=== PATIENT | male | born 1975 | race African-American/Black ===

== ENCOUNTER 2020-01-30 17:14 | Emergency (ER) | payer OTHER, SELFPAY ==
--- NOTE | ~2020-01-30 | CT_ITS ---
EXAMINATION: CT abdomen pelvis wo con EXAM DATE: 01/30/2020 18:27 INDICATION: Nausea, abdominal pain, vomiting. History pancreatitis. TECHNIQUE: Spiral CT of the abdomen and pelvis was performed without contrast. Axial, coronal and sag ittal images were reviewed. The dose-length product (DLP) for this examination was 197.04 mGy-cm. T he exposure was tailored according to patient size (auto mA exposure control), and iterative reconstr uction (ASIR) was used as additional dose reduction technique. Comparison is made to prior examinatio n from 04/29/2019. FINDINGS: There is punctate left calyceal stone. No hydronephrosis or obstructing ureteral stones. Th e right kidney is not identified. There is cystic region posterior to the bladder and extending along the expected course of the right ureter which is likely ureter, dilated from chronic right-sided UVJ reflux, similar appearance on prior study. The prostate is unremarkable. The bladder is unremarkab le. The liver, spleen, adrenal glands and pancreas are unremarkable. Gallbladder is unremarkable. No biliary obstruction. There is no retroperitoneal or pelvic lymphadenopathy. The appendix is not positively visualized. There is no pericecal inflammatory change to suggest appe ndicitis. There is mild sigmoid predominant colonic diverticulosis. There is no adjacent inflammator y change to suggest diverticulitis. The stomach and small bowel are unremarkable. Possible transvers e and descending colonic wall edema, possible colitis. No free intraperitoneal gas. The heart is normal in size. There are no pericardial or pleural effusions. The lung bases are unremarkable. Th e bones are unremarkable. IMPRESSION: 1. Punctate left calyceal stone. 2. Chronic severe right-sided hydroureter likely result of vesicoureteral reflux, unchanged. 3. Possible transverse and descending colonic colitis. Reviewed, dictated and finalized at location A. IMPRESSION: 1. Punctate left calyceal stone. 2. Chronic severe right-sided hydroureter likely result of vesicoureteral refl ux, unchanged. 3. Possible transverse and descending colonic colitis.
[2020-01-30 17:14] VITALS: BP 143/97; PULSE 78; RESP 17; TEMP 36.6; O2SAT 100
[2020-01-30 17:35] LABS: Basophils Percent Auto 0.4 % (0.2-1.2); Eosinophils Percent Auto 0.5 % (0-4.4); Hematocrit 39.6 % (42.0-52.0); Hemoglobin 13.4 g/dL (14.0-18.0); Immature Granulocyte Absolute 0.02 K/mm3 (0.00-0.031); Immature Granulocyte Percent A 0.3 % (0-0.5); Lymphocytes Absolute Auto 1.91 K/mm3 (0.9-3.2); Lymphocytes Percent Auto 24.8 % (18.3-44.2); Mean Corpuscular HGB Conc 33.8 g/dl (32-36); Mean Corpuscular Hemoglobin 32.3 pg (26-34); Mean Corpuscular Volume 95.4 fl (80-100); Mean Platelet Volume 10.3 fl (7.4-10.4); Monocytes Absolute Auto 0.3 K/mm3 (0.1-0.6); Monocytes Percent Auto 4.4 % (2.6-8.5); Neutrophils Absolute Auto 5.4 K/mm3 (1.3-6.7); Neutrophils Percent Auto 69.6 % (45.5-73.1); Platelet Count Result 172 k/mm3 (150-375); Red Blood Count 4.15 M/mm3 (4.6-6.20); Red Cell Distribution Width 13.8 % (11.5-14.5); White Blood Count 7.7 K/mm3 (4.5-10.0)
[2020-01-30 17:48] LABS: Alanine Aminotransferase 13 U/L (4-50); Alkaline Phosphatase 41 U/L (38-126); Aspartate Amino Transferase 28 U/L (17-59); Bilirubin,Total 0.4 mg/dL (0.2-1.3); Blood Urea Nitrogen 15 mg/dL (9-20); Calcium 8.8 mg/dL (8.4-10.2); Carbon Dioxide 28 mmol/L (22-30); Chloride 108 mmol/L (98-107); Estimated CRCL calculation 71 ml/min; Estimated Glomerular Filt Rate > 60; Glucose 88 mg/dL (75-110); Lipase 412 U/L (23-300); Sodium 139 mmol/L (137-145)
[2020-01-30] MEDS: SODIUM CHLORIDE 0.9% IV 1,000 ML 999 ML IV CONT ×2 (18:04→19:50)
[2020-01-30] MEDS: HYDROMORPHONE HCL 1 MG/ML INJ IV PUSH (18:04)
[2020-01-30] MEDS: ONDANSETRON INJ 4 MG/2 ML VIAL IV PUSH (18:04)
--- NOTE | 2020-01-30 18:17 | ED.ABDPAIN ---
HPI - Abdominal Pain General Chief Complaint: Abdominal Pain <NASIR Mills Last Filed: 01/30/20 20:16> Stated Complaint: ABD PAIN <NASIR Mills Last Filed: 01/30/20 20:16> Time Seen by Provider: 01/30/20 17:34 <NASIR Mills Last Filed: 01/30/20 20:16> Source: patient <NASIR Mills Last Filed: 01/30/20 20:16> Mode of arrival: EMS <NASIR Mills Last Filed: 01/30/20 20:16> Limitations: no limitations <NSAIR Mills Last Filed: 01/30/20 20:16> History of Present Illness HPI narrative: This is a 44-year-old male that presents the emergency department for upper abdominal pain, nausea and vomiting. Reports this started this morning. Reports a history of chronic pancreatitis. Reports he drank alcohol last night which usually exacerbates his pancreatitis. Also reports he has been having some diarrhea. Denies fever. <NASIR Mills Last Filed: 01/30/20 20:16> Related Data Allergies/Adverse Reactions: Allergies Allergy/AdvReac Type Severity Reaction Status Date / Time ketorolac Allergy Intermediate dystonic Verified 10/14/18 14:04 prochlorperazine Allergy Intermediate Verified 10/14/18 14:04 morphine Allergy Mild Verified 10/14/18 14:04 fentanyl Allergy Unknown Verified 10/14/18 14:04 iodine Allergy Unknown IVP DYE Verified 10/14/18 14:04 Contrast Media Allergy Mild Uncoded 10/14/18 14:04 <NASIR Mills Last Filed: 01/30/20 20:16> Review of Systems Review of Systems: Narrative: CONSTITUTIONAL: Denies fever GASTROINTESTINAL: Reports abdominal pain, nausea, vomiting, and diarrhea. GENITOURINARY: Denies dysuria or hematuria. <NASIR Mills Last Filed: 01/30/20 20:16> All systems reviewed & are unremarkable except as noted in HPI and below <Delmy Saba PA-C - Last Filed: 01/30/20 20:16> [facility] Past Medical History Medical History: Medical History (Updated 01/31/20 @ 00:00 by Luis Carlos May) Anxiety Back injury Depression Epilepsy GI bleed Gonorrhea H pylori ulcer Kidney stones Multiple sclerosis Nephritis Pancreatic cancer Pancreatitis Parkinson's disease Peripheral neuropathy Seizure UTI (urinary tract infection) <Delmy Saba PA-C - Last Filed: 01/30/20 20:16> Surgical History Surgical History: Surgical History (Updated 08/28/19 @ 16:35 by Neeraj Ashley) H/O removal of cyst History of hernia surgery History of nephrectomy <NASIR Mills Last Filed: 01/30/20 20:16> Social History Social History: Social History (Updated 08/28/19 @ 16:35 by Neeraj Ashley) Smoking status: Current every day smoker Gender identity (if verbalized by the patient): Male <NASIR Mills Last Filed: 01/30/20 20:16> Exam Narrative: Exam Narrative: GENERAL: Well-appearing, well-nourished, and in acute distress due to pain. HEAD: Normocephalic, atraumatic. EYES: EOMI. CHEST: Clear to auscultation. No respiratory distress. No wheezes rales or rhonchi HEART: Regular rate and rhythm. No murmur heard. Normal peripheral pulses. ABDOMEN: Soft, nondistended, normal active bowel sounds. Tender to palpation of the upper abdomen, without guarding EXTREMITIES: Normal range of motion. No edema. SKIN: Warm, dry, no rash. NEURO: No focal deficits. Alert and oriented x3. PSYCH: Normal mood and affect <NASIR Mills Last Filed: 01/30/20 20:16> Course Consultations Consultation #1: Spoke with Dr. Chaney about patient work-up who reports if patient feels comfortable we can hydrate him in the ED and send him home to follow-up in clinic tomorrow. <NASIR Mills Last Filed: 01/30/20 20:16> Date: 01/30/20 <NASIR Mills Last Filed: 01/30/20 20:16> Time: 20:09 <Delmy Saba PA-C - Last Filed: 01/30/20 20:16> Vital Signs Vital signs: Vital Signs Temperature 36.6 C 01/30/20 17:14
[2020-01-30 18:42] VITALS: BP 114/75; PULSE 70; RESP 12; O2SAT 100
[2020-01-30 19:15] VITALS: TEMP 36.6
[2020-01-30 19:50] LABS: Add Urine Microscopic? YES; Appearance Urine Clear (Clear); Bilirubin Urine Negative (Negative); Blood Urine 2+ (Negative); Color Urine Yellow (Yellow); Glucose Urine UA Negative (Negative); Ketones Urine Negative (Negative); Leukocyte Esterase Ur Negative LEU/UL (Negative); Mucus Urine Rare /lpf; Nitrate Urine Negative (Negative); Protein Urine Negative (Negative); RBC Urine 21-50 /hpf (0-2); Specific Grav Ur 1.016 (1.001-1.035); Squamous Epithelial Cell Urine Rare /hpf (Few); Urobilinogen Urine Negative mg/dL (<2.0); WBC Urine 0-3 /hpf
[2020-01-30 20:01] VITALS: BP 128/84; PULSE 87; RESP 16; O2SAT 99
--- NOTE | 2020-01-30 21:08 | PC.NURSE ---
Heparin used to de-access port.
[2020-01-30 21:09] VITALS: BP 139/78; PULSE 82; RESP 18; TEMP 36.6; O2SAT 100
== END 2020-01-30 21:10 | disposition home or self-care (01) ==
PROVIDERS: Emergency Provider Emergency Medicine
DX: K86.1 Other chronic pancreatitis (principal); Z90.5 Acquired absence of kidney; F17.200 Nicotine dependence, unspecified, uncomplicated; N20.0 Calculus of kidney; N13.4 Hydroureter; Z85.07 Personal history of malignant neoplasm of pancreas; Z87.442 Personal history of urinary calculi; G20 Parkinson's disease; G62.9 Polyneuropathy, unspecified; Z87.440 Personal history of urinary (tract) infections
CPT/HCPCS: 36415; 74176; 80053; 81001; 83690; 85025; 96361; 96374; 96375; 99284; J1170; J2405; J7030

== ENCOUNTER 2020-05-04 11:28 | Emergency (ER) | payer OTHER, SELFPAY ==
--- NOTE | ~2020-05-04 | XR_ITS ---
EXAMINATION: XR wrist LT min 3V DATE: 05/04/2020 11:45 INDICATION: Left wrist pain TECHNIQUE: Posteroanterior, ulnar deviation, oblique, and lateral views of the left wrist were obtain ed. COMPARISON: None available FINDINGS: There is no fracture, dislocation, or subluxation. The bones, soft tissues, and joint space s are normal. IMPRESSION: 1. No acute osseous abnormality. Reviewed, dictated and finalized at location A.
[2020-05-04 11:32] VITALS: BP 114/75; PULSE 77; RESP 18; TEMP 36.3; O2SAT 99
--- NOTE | 2020-05-04 12:09 | ED.GENADULT ---
HPI - General Adult General Chief complaint: Extremity Injury, Upper <Tk Gao PA-C - Last Filed: 05/04/20 12:13> Stated complaint: Left Arm Pain <NASIR Mercedes Last Filed: 05/04/20 12:13> Time Seen by Provider: 05/04/20 11:31 <Tk Gao PA-C - Last Filed: 05/04/20 12:13> Source: patient <NASIR Mercedes Last Filed: 05/04/20 12:13> Mode of arrival: ambulatory <Tk Gao PA-C - Last Filed: 05/04/20 12:13> Limitations: no limitations <Tk Gao PA-C - Last Filed: 05/04/20 12:13> History of Present Illness HPI narrative: Patient is a 44-year-old male who presents to emergency department for evaluation of left wrist injury that occurred after shutting his wrist in the door since had aching pain worse with activity and movement patient denies other injuries or complaints and presents in no distress <Tk Gao PA-C - Last Filed: 05/04/20 12:13> Related Data Allergies/adverse reactions: Allergies Allergy/AdvReac Type Severity Reaction Status Date / Time morphine Allergy Other Verified 05/04/20 11:36 prochlorperazine Allergy Other Verified 05/04/20 11:36 [From Compazine] IVP dye Allergy Other Uncoded 05/04/20 11:36 <Tk Gao PA-C - Last Filed: 05/04/20 12:13> Review of Systems Review of Systems: All systems reviewed & are unremarkable except as noted in HPI and below <Tk Gao PA-C - Last Filed: 05/04/20 12:13> PMFSH Social History Social History: Social History (Updated 05/04/20 @ 12:10 by Tk Gao PA-C) Smoking status: Never smoker Gender identity (if verbalized by the patient): Male <Tk Gao PA-C - Last Filed: 05/04/20 12:13> Exam Narrative: Exam Narrative: GENERAL: Well-appearing, well-nourished, and in no acute distress. HEAD: Normocephalic, atraumatic. EYES: PERRLA and EOMI. EXTREMITIES: Normal range of motion. No edema. Tenderness of the wrist joint with no deformities noted SKIN: Warm, dry, no rash. NEURO: No focal deficits. Alert and oriented x3. Neurovascularly intact. Capillary refill less than 2 seconds PSYCH: Normal mood and affect. <Tk Gao PA-C - Last Filed: 05/04/20 12:13> Course Course Emergency Course: Patient in the room in no distress aware of case findings treatment plan and diagnosis <Tk Gao PA-C - Last Filed: 05/04/20 12:13> Vital Signs Vital signs: Vital Signs Temperature 36.3 C L 05/04/20 11:32 Pulse Rate 77 05/04/20 11:32 Respiratory Rate 18 05/04/20 11:32 Blood Pressure 114/75 05/04/20 11:32 Pulse Oximetry 99 05/04/20 11:32 Temperature 36.3 C L 05/04/20 11:32 Pulse Rate 77 05/04/20 11:32 Respiratory Rate 18 05/04/20 11:32 Blood Pressure 114/75 05/04/20 11:32 Pulse Oximetry 99 05/04/20 11:32 <Tk Gao PA-C - Last Filed: 05/04/20 12:13> Vital Signs Temperature 36.3 C L 05/04/20 11:32 Pulse Rate 77 05/04/20 11:32 Respiratory Rate 18 05/04/20 11:32 Blood Pressure 114/75 05/04/20 11:32 Pulse Oximetry 99 05/04/20 11:32 Temperature 36.3 C L 05/04/20 11:32 Pulse Rate 77 05/04/20 11:32 Respiratory Rate 18 05/04/20 11:32 Blood Pressure 114/75 05/04/20 11:32 Pulse Oximetry 99 05/04/20 11:32 <Anel Haney MD - Last Filed: 05/04/20 12:33> Medical Decision Making MDM Narrative Medical decision making narrative: Patients injury or pain is consistent with musculoskeletal etiology. No signs of neurological or vascular compromise on exam. Compartments and tisues are soft without signs of compartment syndrome. Pain is felt appropriate for further evaluation on an outpatient basis. <NASIR Mercedes Last Filed: 05/04/20 12:13> Vital Signs Vital Signs: Vital Signs Temperature 36.3 C L 05/04/20 11:32 Pulse Rate 77 05/04/20 11:32 Respiratory Rate 18 05/04/20 11:32 Blood
[2020-05-04 12:36] VITALS: PULSE 72; RESP 20; O2SAT 100
== END 2020-05-04 12:37 | disposition home or self-care (01) ==
PROVIDERS: Emergency Provider Emergency Medicine
DX: S63.502A Unspecified sprain of left wrist, initial encounter (principal); S66.912A Strain of unspecified muscle, fascia and tendon at wrist and hand level, left hand, initial encounter; W23.0XXA Caught, crushed, jammed, or pinched between moving objects, initial encounter
CPT/HCPCS: 73110; 99283

== ENCOUNTER 2020-07-13 19:14 | Emergency (ER) | payer OTHER, SELFPAY ==
--- NOTE | 2020-07-13 20:13 | PC.NURSE ---
called for pt in waiting room, no response
--- NOTE | 2020-07-13 20:30 | PC.NURSE ---
Patient called for triage, second call. No answer. Patient has left ED prior to being seen.
== END 2020-07-13 20:30 | disposition left against medical advice (07) ==
LOC: ANHED 21:29
DX: Z53.21 Procedure and treatment not carried out due to patient leaving prior to being seen by health care provider (principal)
CPT/HCPCS: 99199

== ENCOUNTER 2020-07-15 10:10 | Emergency (ER) | payer OTHER, SELFPAY ==
--- NOTE | ~2020-07-15 | XR_ITS ---
EXAMINATION: XR shoulder RT min 2V EXAM DATE: 07/15/2020 12:09 INDICATION: Right shoulder pain, injury. Initial encounter. TECHNIQUE: The following right shoulder projections obtained: frontal projection with internal rotati on, frontal projection with external rotation, Grashey, and scapular Y view (4+ views). There is no prior study for comparison. FINDINGS: No evidence of right shoulder rotator cuff calcific tendinosis. Unremarkable right gleno humeral and acromioclavicular joints. There are no acute fractures or dislocations identified. There is no subcutaneous gas. The soft tissue is unremarkable. There are no radiopaque foreign bodies. IMPRESSION: 1. XR shoulder RT min 2V exam without acute osseous findings. Reviewed, dictated and finalized at location A. EAU ADMINISTRATOR
[2020-07-15 10:15] VITALS: BP 133/105; PULSE 77; RESP 16; TEMP 36.6; O2SAT 97
--- NOTE | 2020-07-15 11:50 | ED.UPPEXIN ---
HPI - Extremity Injury (Upper) General Chief Complaint: Extremity Injury, Upper Stated Complaint: right shoulder pain Time Seen by Provider: 07/15/20 11:22 Source: patient Mode of arrival: ambulatory Limitations: no limitations History of Present Illness HPI narrative: This is a 44 year old male that presents to the ER for right shoulder pain x 1 week. Reports he was shoveling and felt a pop in the right shoulder. Reports initially he was having improvement with Naproxen. Reports a couple of days ago he lifted a heavy box with worsening in his pain again. Reports decreased ROM due to pain. Denies fever, erythema, weakness or numbness. Related Data Home Medications Medication Instructions Recorded Confirmed No Home Medications 07/15/20 07/15/20 Allergies Allergy/AdvReac Type Severity Reaction Status Date / Time ketorolac Allergy Intermediate dystonic Verified 10/14/18 14:04 prochlorperazine Allergy Intermediate Blister Verified 07/15/20 10:46 morphine Allergy Mild Blister Verified 07/15/20 10:46 fentanyl Allergy Unknown Blister Verified 07/15/20 10:46 Contrast Media Allergy Mild Other Uncoded 07/15/20 10:46 Review of Systems Review of Systems: Narrative: CONSTITUTIONAL: Denies fever CARDIOVASCULAR: Denies chest pain SKIN: Denies rash MUSCULOSKELETAL: Reports joint pain, and myalgia. NEUROLOGIC: Denies numbness, or weakness. All systems reviewed & are unremarkable except as noted in HPI and below PMFSH Past Medical History Medical History (Updated 07/15/20 @ 13:02 by Delmy Saba PA-C) Anxiety Back injury Depression Epilepsy GI bleed Gonorrhea H pylori ulcer Kidney stones Multiple sclerosis Nephritis Pancreatic cancer Pancreatitis Parkinson's disease Peripheral neuropathy Seizure UTI (urinary tract infection) Surgical History Surgical History (Updated 08/28/19 @ 16:35 by Neeraj Ashley) H/O removal of cyst History of hernia surgery History of nephrectomy Social History Social History (Updated 08/28/19 @ 16:35 by Neeraj Ashley) Smoking status: Current every day smoker Gender identity (if verbalized by the patient): Male Exam Narrative: Exam Narrative: GENERAL: Well-appearing, well-nourished, and in no acute distress. HEAD: Normocephalic, atraumatic. EYES: EOMI. CHEST: Clear to auscultation. No respiratory distress. No wheezes rales or rhonchi HEART: Regular rate and rhythm. No murmur heard. Normal peripheral pulses. EXTREMITIES: Decreased active range of motion in the right shoulder above 90 degrees due to pain. No edema, erythema or obvious deformity. Normal radial pulses. Normal sensation SKIN: Warm, dry, no rash. NEURO: No focal deficits. Alert and oriented x3. PSYCH: Normal mood and affect Course Vital Signs Vital signs: Vital Signs Temperature 97.8 F 07/15/20 10:15 Pulse Rate 77 07/15/20 10:15 Respiratory Rate 16 07/15/20 10:15 Blood Pressure 133/105 H 07/15/20 10:15 Pulse Oximetry 97 07/15/20 10:15 Temperature 97.8 F 07/15/20 10:15 Pulse Rate 77 07/15/20 10:15 Respiratory Rate 16 07/15/20 10:15 Blood Pressure 133/105 H 07/15/20 10:15 Pulse Oximetry 97 07/15/20 10:15 MDM - Extremity Injury (Upper) MDM Narrative Medical decision making narrative: Patient presents to the emergency department for right shoulder pain after an injury a week ago. Right shoulder x-rays without acute findings. Patient was instructed to rest, ice and take [id number] pain medication as needed. He is to follow-up with primary care doctor. He was given warnings to return to the ER Imaging Data Radiologist's impression: ITS Impressions Shoulder X-Ray 07/15/20 12:13 IMPRESSION: 1. XR shoulder RT min 2V exam without acute osseous findings. Critical Care Time Critical Care Time Critical Care Time: No Discharge Plan Discharge Clinical Impression: Acute pain of right shoulder Patient Disposition: Home, Self-Care
== END 2020-07-15 13:16 | disposition home or self-care (01) ==
PROVIDERS: Emergency Provider Emergency Medicine; PCP Internal Medicine
DX: M25.511 Pain in right shoulder (principal); Z87.442 Personal history of urinary calculi; Z85.07 Personal history of malignant neoplasm of pancreas; Z87.440 Personal history of urinary (tract) infections; F17.200 Nicotine dependence, unspecified, uncomplicated; Z90.5 Acquired absence of kidney
CPT/HCPCS: 73030; 99283; A4565

== ENCOUNTER 2020-08-03 16:48 | Emergency (ER) | payer OTHER, SELFPAY ==
[2020-08-03 16:58] VITALS: BP 143/113; PULSE 67; RESP 18; TEMP 36.8; O2SAT 97
[2020-08-03 17:56] VITALS: BP 128/108; PULSE 64; RESP 16; O2SAT 97
[2020-08-03 18:00] LABS: Basophils Percent Auto 0.4 % (0.2-1.2); Eosinophils Absolute Auto 0.1 K/mm3 (0-0.3); Hematocrit 42.7 % (42.0-52.0); Hemoglobin 14.8 g/dL (14.0-18.0); Immature Granulocyte Absolute 0.02 K/mm3 (0.00-0.031); Immature Granulocyte Percent A 0.3 % (0-0.5); Immature Platelet Fraction Pct 4.5 % (0.9-11.2); Lymphocytes Percent Auto 36.8 % (18.3-44.2); Mean Corpuscular HGB Conc 34.7 g/dl (32-36); Mean Corpuscular Hemoglobin 32.5 pg (26-34); Mean Corpuscular Volume 93.6 fl (80-100); Monocytes Absolute Auto 0.6 K/mm3 (0.1-0.6); Monocytes Percent Auto 8.7 % (2.6-8.5); Neutrophils Absolute Auto 3.9 K/mm3 (1.3-6.7); Neutrophils Percent Auto 52.8 % (45.5-73.1); Platelet Count Result 169 k/mm3 (150-375); Red Blood Count 4.56 M/mm3 (4.6-6.20); Red Cell Distribution Width 13.9 % (11.5-14.5); White Blood Count 7.3 K/mm3 (4.5-10.0)
[2020-08-03 18:11] LABS: Anion Gap 10 mmol/L (8-16); Blood Urea Nitrogen 14 mg/dL (9-20); Calcium 9.7 mg/dL (8.4-10.2); Carbon Dioxide 23 mmol/L (22-30); Chloride 105 mmol/L (98-107); Estimated CRCL calculation 64 ml/min; Estimated Glomerular Filt Rate > 60; Glucose 107 mg/dL (75-110); Potassium 3.7 mmol/L (3.4-5.0); Sodium 138 mmol/L (137-145)
--- NOTE | 2020-08-03 18:19 | ED.GENADULT ---
HPI - General Adult General Chief complaint: Extremity Injury, Upper Stated complaint: lumps in my right arm Time Seen by Provider: 08/03/20 17:17 Source: patient and old records reviewed Mode of arrival: ambulatory Limitations: no limitations History of Present Illness HPI narrative: Patient is a 45-year-old male who presents to emergency department for evaluation of right upper extremity pain patient notes feeling bumps in the right bicep region with pain down to the wrist up into the shoulder patient denies injury or trauma patient notes the pain is worse with activity and movement denies similar occurrence in the past has not taken anything other than ibuprofen with some relief patient presents per private vehicle no distress Related Data Home Medications Medication Instructions Recorded Confirmed No Home Medications 07/15/20 07/15/20 Allergies Allergy/AdvReac Type Severity Reaction Status Date / Time ketorolac Allergy Intermediate dystonic Verified 08/03/20 17:16 prochlorperazine Allergy Intermediate Blister Verified 08/03/20 17:16 morphine Allergy Mild Blister Verified 08/03/20 17:16 fentanyl Allergy Unknown Blister Verified 08/03/20 17:16 Contrast Media Allergy Mild Other Uncoded 08/03/20 17:16 Review of Systems Review of Systems: All systems reviewed & are unremarkable except as noted in HPI and below PMFSH Past Medical History Medical History Anxiety Back injury Depression Epilepsy GI bleed Gonorrhea H pylori ulcer Kidney stones Multiple sclerosis Nephritis Pancreatic cancer Pancreatitis Parkinson's disease Peripheral neuropathy Seizure UTI (urinary tract infection) Surgical History Surgical History H/O removal of cyst History of hernia surgery History of nephrectomy Social History Social History Smoking status: Current every day smoker Gender identity (if verbalized by the patient): Male Exam Narrative: Exam Narrative: GENERAL: Well-appearing, well-nourished, and in no acute distress. HEAD: Normocephalic, atraumatic. EYES: PERRLA and EOMI. ENT: Nares clear, no rhinorrhea or epistaxis. Mucous membranes moist. CHEST: Clear to auscultation. No respiratory distress. No wheezes rales or rhonchi HEART: Regular rate and rhythm. No murmur heard. Normal peripheral pulses. EXTREMITIES: Normal range of motion. No edema. Patient with palpable cord from the deltoid region down along the inner bicep without erythema fluctuance SKIN: Warm, dry, no rash. NEURO: No focal deficits. Alert and oriented x3. Neurovascularly intact. Capillary refill less than 2 seconds PSYCH: Normal mood and affect. Course Course Emergency Course: Patient in the room in no distress aware of case findings treatment plan diagnosis patient given a dose of Lovenox will be discharged home for return visit in the morning for ultrasound rule out DVT. Patient hemodynamically stable vital signs within normal limits. Patient aware of discussion with his primary care and agrees with the plan and will return in the morning Consultations Consultation #1: Discussed case with his primary care and notes that he can contact him to follow in clinic was made aware of the ultrasound findings Date: 08/03/20 Time: 18:21 Vital Signs Vital signs: Vital Signs Temperature 98.2 F 08/03/20 16:58 Pulse Rate 67 08/03/20 16:58 Respiratory Rate 18 08/03/20 16:58 Blood Pressure 143/113 H 08/03/20 16:58 Pulse Oximetry 97 08/03/20 16:58 Temperature 98.2 F 08/03/20 16:58 Pulse Rate 64 08/03/20 17:56 Respiratory Rate 16 08/03/20 17:56 Blood Pressure 128/108 H 08/03/20 17:56 Pulse Oximetry 97 08/03/20 17:56 Medical Decision Making MDM Narrative Medical decision making narrative: Patients injury or pain is consistent with musculoskeletal etiolog
[2020-08-03] MEDS: ENOXAPARIN 80 MG/0.8 ML SYRINGE 65 MG SUB-Q (18:33)
[2020-08-03 18:37] VITALS: BP 135/93; PULSE 75; RESP 18; O2SAT 97
== END 2020-08-03 18:40 | disposition home or self-care (01) ==
PROVIDERS: Emergency Medicine Emergency Medical Services; Emergency Provider Emergency Medicine
DX: M79.601 Pain in right arm (principal); G40.909 Epilepsy, unspecified, not intractable, without status epilepticus; Z87.442 Personal history of urinary calculi; G35 Multiple sclerosis; Z85.07 Personal history of malignant neoplasm of pancreas; G20 Parkinson's disease; G62.9 Polyneuropathy, unspecified; Z87.440 Personal history of urinary (tract) infections; Z90.5 Acquired absence of kidney; F17.200 Nicotine dependence, unspecified, uncomplicated
CPT/HCPCS: 36415; 80048; 85025; 85055; 96372; 99283; J1650

== ENCOUNTER 2020-11-30 20:25 | Inpatient (IN) | payer OTHER, SELFPAY ==
--- NOTE | ~2020-11-30 | XR_ITS ---
XR chest 1V portable DATE: 11/30/2020 22:22 INDICATION: Overdose TECHNIQUE: Portable AP chest on 11/30/2020 at 2223 hours COMPARISON: 06/24/2014 PA and lateral chest FINDINGS: Left-sided Port-A-Cath catheter tip overlies superior vena cava. Normal heart size. No pulmonary infiltrate or consolidation, pleural effusion or pulmonary vascular c ongestion or pneumothorax is detected. IMPRESSION: No active cardiopulmonary disease Reviewed, dictated and finalized at location A.
--- NOTE | ~2020-11-30 | XR_ITS ---
XR abdomen/kub 1V DATE: 11/30/2020 22:01 INDICATION: Drug overdose TECHNIQUE: Portable supine AP views COMPARISON: 01/30/2020 CT abdomen pelvis FINDINGS: Nonspecific bowel gas pattern without evidence of obstruction. No visceromegaly or signific ant abnormal calcification is evident. Heart size appears normal. Lung bases appear clear. Included skeletal structures are unremarkable. IMPRESSION: Nonspecific abdomen Reviewed, dictated and finalized at Location A. Reviewed, dictated and finalized at location A. IMPRESSION: Nonspecific abdomen
[2020-11-30 20:26] VITALS: BP 152/97; PULSE 73; RESP 14; TEMP 36.5; O2SAT 95
[2020-11-30 20:32] VITALS: RESP 13
--- NOTE | 2020-11-30 20:35 | ECG_ITS ---
Measurements Intervals [place] Rate: 89 P: 74 [place]: 150 QRS: 69 QRSD: 70 T: 62 QT: 339 QTc: 413 Interpretive Statements SINUS RHYTHM PEAKED T WAVES- CONSIDER HYPERKALEMIA OR ISCHEMIA BASELINE ARTIFACT- I, II, AVR, AVL,A VF ABNORMAL ECG Electronically Signed On 12-01-2020 7:34:44 CDT by Jose Valiente D.O.
--- NOTE | 2020-11-30 20:47 | ED.OVERDOSE ---
HPI - Overdose General Chief Complaint: Overdose Stated Complaint: combative/ OD/ from PD Time Seen by Provider: 11/30/20 20:32 Source: EMS and RN notes reviewed Mode of arrival: EMS Limitations: clinical condition History of Present Illness HPI Narrative: Patient is 45 years old -[place] male brought to the emergency room by the police/ambulance because of drug overdose of 30 tablets of Seroquel, 50 mg each, clonazepam, 30 tablets of unknown strength. 45 minutes prior to arrival to the emergency room. Patient got arrested by the police, somehow was able to grab some pills in his socks. 6 pills found on the floor of Seroquel 50 mg each. Related Data Home Medications Medication Instructions Recorded Confirmed No Home Medications 07/15/20 07/15/20 Allergies Allergy/AdvReac Type Severity Reaction Status Date / Time ketorolac Allergy Intermediate dystonic Verified 08/03/20 17:16 prochlorperazine Allergy Intermediate Blister Verified 08/03/20 17:16 morphine Allergy Mild Blister Verified 08/03/20 17:16 fentanyl Allergy Unknown Blister Verified 08/03/20 17:16 Contrast Media Allergy Mild Other Uncoded 08/03/20 17:16 Review of Systems Review of Systems: ROS unobtainable: Yes unobtainable due to medical condition PMFSH Past Medical History Medical History Anxiety Back injury Depression Epilepsy GI bleed Gonorrhea H pylori ulcer Kidney stones Multiple sclerosis Nephritis Pancreatic cancer Pancreatitis Parkinson's disease Peripheral neuropathy Seizure UTI (urinary tract infection) Surgical History Surgical History H/O removal of cyst History of hernia surgery History of nephrectomy Social History Social History Smoking status: Current every day smoker Gender identity (if verbalized by the patient): Male Exam Narrative: Exam Narrative: General appearance: Well-developed, well-nourished, handcuffed in the bed, uncooperative,, sleepy Skin: Normal color Head: Normocephalic, nontraumatic Eyes: Clear conjunctiva Neck: Supple, nontender Chest and respiratory: Airway patent, no respiratory distress, no accessory muscle use Heart: Regular rate/rhythm Musculoskeletal: Normal range of motion, nontender back Neurologic: Alert, somnolent, uncooperative Course Course Emergency Course: Guarded Consultations Consultation #1: DR FLORES Date: 11/30/20 Time: 22:53 Vital Signs Vital signs: Vital Signs Temperature 36.5 C 11/30/20 20:26 Pulse Rate 73 11/30/20 20:26 Respiratory Rate 14 11/30/20 20:26 Blood Pressure 152/97 H 11/30/20 20:26 Pulse Oximetry 95 11/30/20 20:26 Temperature 36.5 C 11/30/20 20:26 Pulse Rate 73 11/30/20 20:26 Respiratory Rate 13 11/30/20 20:32 Blood Pressure 152/97 H 11/30/20 20:26 Pulse Oximetry 95 11/30/20 20:26 MDM - Overdose MDM Narrative Medical decision making narrative: Patient brought to the emergency room because of overdose of Seroquel and clonazepam. Patient is uncooperative, currently responsive to painful stimulation. Poison control recommendation that patient could have in the next 1 to 4 hours central nervous system depression, ataxia, decrease respiratory and decreased blood pressure. And the recommendation was to use benzodiazepines, Keppra, propofol and IV fluid Lab Data Result diagrams: 11/30/20 21:28 Labs: Lab Results 11/30/20 11/30/20 11/30/20 Range/Units 20:58 20:58 21:17 WBC (4.5-10.0) K/mm3 RBC (4.6-6.20) M/mm3 Hgb (14.0-18.0) g/dL Hct (42.0-5
[2020-11-30 21:09] LABS: Base Excess ABG -2.2 mEq/l (+/-2.0); Fractional Inspired Oxygen 21 %; HCO3 ABG 23.7 mEq/l (22.0-26.0); Oxygen Content ABG 17.8 %vol (16.0-22.0); Oxygen Saturation ABG 96.1 % (95.0-100.0); Oxyhemoglobin 94.3 % THb (90.0-100.0); PCO2 ABG 45.1 mmHg (35.0-45.0); PO2 ABG 87.7 mmHg (80.0-100.0); PO2 FiO2 Ratio Arterial Blood 4.18 %; Total Hemoglobin 13.4 g/dL (12.0-18.0); pH ABG 7.339 (7.350-7.450)
[2020-11-30 21:10] LABS: Add Urine Microscopic? YES; Appearance Urine Clear (Clear); Bacteria Urine Trace /hpf; Bilirubin Urine Negative (Negative); Blood Urine 2+ (Negative); Color Urine Yellow (Yellow); Glucose Urine UA Negative (Negative); Ketones Urine Negative (Negative); Leukocyte Esterase Ur Negative LEU/UL (Negative); Mucus Urine Few /lpf; Nitrate Urine Negative (Negative); Protein Urine 2+ mg/dL (Negative); RBC Urine 21-50 /hpf (0-2); Specific Grav Ur 1.023 (1.001-1.035); Squamous Epithelial Cell Urine Rare /hpf (Few); Urobilinogen Urine Negative mg/dL (<2.0)
[2020-11-30] MEDS: SODIUM CHLORIDE 0.9% IV 1,000 ML 999 ML IV CONT ×2 (21:17)
--- NOTE | 2020-11-30 21:19 | PC.NURSE ---
bedside glucose is 105.
[2020-11-30 21:20] LABS: Glucose Point of Care 105 (65-105)
[2020-11-30 21:36] LABS: Basophils Percent Auto 0.4 % (0.2-1.2); Eosinophils Percent Auto 0.2 % (0-4.4); Hematocrit 42.2 % (42.0-52.0); Hemoglobin 13.5 g/dL (14.0-18.0); Immature Granulocyte Absolute 0.05 K/mm3 (0.00-0.031); Immature Granulocyte Percent A 0.6 % (0-0.5); Lymphocytes Absolute Auto 1.09 K/mm3 (0.9-3.2); Mean Platelet Volume 9.4 fl (7.4-10.4); Monocytes Absolute Auto 0.6 K/mm3 (0.1-0.6); Monocytes Percent Auto 6.7 % (2.6-8.5); Neutrophils Absolute Auto 7.2 K/mm3 (1.3-6.7); Neutrophils Percent Auto 80.1 % (45.5-73.1); Platelet Count Result 185 k/mm3 (150-375); Red Blood Count 4.22 M/mm3 (4.6-6.20); Red Cell Distribution Width 14.4 % (11.5-14.5); White Blood Count 9.1 K/mm3 (4.5-10.0)
[2020-11-30 21:45] LABS: Acetaminophen < 10 ug/mL (10-30); Ethanol < 10 mg/dL (<10); Salicylate < 1.0 mg/dL (2-20)
[2020-11-30 21:57] LABS: Partial Thromboplastin Time 26.5 SECONDS (22.3-36.8); Prothrombin Time 13.3 Seconds (11.1-14.7)
[2020-11-30 22:01] LABS: Cocaine Screen Urine Positive (Negative); Methadone Screen Urine Negative (Negative); Opiate Screen Urine Negative (Negative)
[2020-11-30 22:14] LABS: Barbiturate Screen Urine Negative (Negative); Benzodiazepines Screen Urine Negative (Negative)
[2020-11-30 22:16] LABS: Cannabinoid Screen Urine Positive (Negative)
[2020-11-30 22:28] LABS: Amphetamine Screen Urine Positive (Negative)
[2020-11-30 22:45] LABS: Phencyclidine Screen Urine Negative (Negative)
[2020-11-30 23:11] LABS: Alanine Aminotransferase 23 U/L (4-50); Albumin Level 3.8 g/dL (3.5-5.1); Alkaline Phosphatase 49 U/L (38-126); Anion Gap 4 mmol/L (8-16); Aspartate Amino Transferase 45 U/L (17-59); Bilirubin,Total 0.2 mg/dL (0.2-1.3); Blood Urea Nitrogen 19 mg/dL (9-20); Calcium 8.4 mg/dL (8.4-10.2); Carbon Dioxide 25 mmol/L (22-30); Chloride 110 mmol/L (98-107); Creatine Kinase 585 U/L (55-170); Estimated Glomerular Filt Rate > 60; Glucose 106 mg/dL (75-110); Magnesium 1.9 mg/dL (1.6-2.3); Potassium 4.1 mmol/L (3.4-5.0); Sodium 139 mmol/L (137-145)
[2020-11-30 23:20] LABS: Base Excess ABG -3.6 mEq/l (+/-2.0); Fractional Inspired Oxygen 21 %; HCO3 ABG 22.1 mEq/l (22.0-26.0); Oxygen Content ABG 17.4 %vol (16.0-22.0); Oxygen Saturation ABG 97.2 % (95.0-100.0); Oxyhemoglobin 95.9 % THb (90.0-100.0); PCO2 ABG 42.3 mmHg (35.0-45.0); PO2 ABG 100.1 mmHg (80.0-100.0); PO2 FiO2 Ratio Arterial Blood 4.77 %; Total Hemoglobin 12.8 g/dL (12.0-18.0); pH ABG 7.335 (7.350-7.450)
[2020-11-30 23:22] LABS: Device ROOM AIR; Modified Allen's Test Unable to perform; Site Drawn RIGHT RADIAL
[2020-11-30 23:24] LABS: Device ROOM AIR; Modified Allen's Test Unable to perform; Site Drawn RIGHT RADIAL
--- NOTE | 2020-11-30 23:28 | PC.NURSE ---
BRIDGETT Figueroa from Poison control calls to get update on patient.
[2020-11-30 23:59] VITALS: BP 127/88; PULSE 86; RESP 18; TEMP 36.6; O2SAT 96
[2020-12-01] VITALS (11 sets, daily range): BP systolic 105–139; BP diastolic 74–94; PULSE 67–100; RESP 12–31; TEMP 35.8–36.3; O2SAT 96–100; BMI 21.7
[2020-12-01] MEDS: SODIUM CHLORIDE 0.9% IV 1,000 ML 150 ML IV CONT ×2 (00:46→07:05)
--- NOTE | 2020-12-01 00:51 | PM.IMHP ---
H&P: HPI History of Present Illness Date/Time: 12/01/20 00:51 Chief Complaint: Intentional Drug overdose Narrative: This is a 45-year-old with known history of pancreatic cancer who was brought to the hospital in police custody secondary to intentional drug overdose. Police report that the patient apparently was hiding pills in his sock and consumed possibly 30 tablets of 50 mg Seroquel and 30 tablets of clonazepam approximately 45 minutes before arrival to the emergency room. The patient was evaluated emergency room this evening and has been very somnolent. He is protecting his airway although very poorly arousable and no history is obtainable. Urine drug screen was positive for amphetamines, cocaine, and cannabinoids. No other history is obtainable secondary to the patient's altered mental status. Review of Systems Review of Systems: ROS unobtainable: Yes unobtainable due to mental status PMFSH Past Medical History Medical History Anxiety Back injury Depression Epilepsy GI bleed Gonorrhea H pylori ulcer Kidney stones Multiple sclerosis Nephritis Pancreatic cancer Pancreatitis Parkinson's disease Peripheral neuropathy Seizure UTI (urinary tract infection) Surgical History Surgical History H/O removal of cyst History of hernia surgery History of nephrectomy Social History Social History Smoking status: Current every day smoker Gender identity (if verbalized by the patient): Male Comments Past histories are not obtainable due to the patient's altered mental status. Meds Home Medications and Allergies Home Medications Medication Instructions Recorded Confirmed Type No Home Medications 07/15/20 07/15/20 History Allergies Allergy/AdvReac Type Severity Reaction Status Date / Time ketorolac Allergy Intermediate dystonic Verified 08/03/20 17:16 prochlorperazine Allergy Intermediate Blister Verified 08/03/20 17:16 morphine Allergy Mild Blister Verified 08/03/20 17:16 fentanyl Allergy Unknown Blister Verified 08/03/20 17:16 Contrast Media Allergy Mild Other Uncoded 08/03/20 17:16 Vital Signs Vital Signs - 24 hr 11/30/20 20:26 11/30/20 20:32 11/30/20 23:59 Temperature 36.5 C 36.6 C Pulse Rate 73 86 Respiratory Rate 14 13 18 Blood Pressure 152/97 H 127/88 Pulse Oximetry 95 96 Exam Const: General: other (Intoxicated and poorly arousable) Nutritional Appearance: well nourished Orientation/consciousness: Other orientation findings (Intoxicated) HENMT: Head: normal to inspection General nose exam: Normal external nose present Face and sinus: normal facial exam Mouth: Yes Normal oral and palatal mucosa present and Yes oropharynx normal Eyes: Pupils: Pinpoint pupils Neck: Neck: supple and no JVD Thyroid: thyroid normal Lymphatic: lymphadenopathy not noted Chest: Chest palpation & inspection: other (Left-sided chest Port-A-Cath in place) Resp: Effort & Inspection: normal respiratory effort Auscultation: clear to auscultation bilaterally Cardio: Rate: regular rate Rhythm: regular rhythm Heart sounds: no murmurs GI: Inspection: normal to inspection Auscultation: normal bowel sounds Skin: General skin exam: normal color and no rashes or lesions noted Extrem: General: normal to inspection and no edema H&P: Results Labs Labs: Short CBC 11/30/20 Range/Units 21:28 WBC 9.1 (4.5-10.0) K/mm3 Hgb 13.5 L (14.0-18.0) g/dL Hct 42.2 (42.0-52.0) % Plt Count 185 (150-375) k/mm3 BMP 11/30/20 21:42 Sodium 139 Potassium 4.1 Chloride 110 H Carbon Dioxide 25 BUN 19 Creatinine 1.20 Glucose 106 Calcium 8.4 Cardiac Enzymes 11/30/20 Range/Units 21:42 Total Creatine Kinase 585 H (55-170) U/L Liver Function 11/30/20 Range/Units 21:42 Total Bilirubin 0
--- NOTE | 2020-12-01 01:29 | ADMIMU ---
This patient, Nikolai Thompson, was admitted to ICU status, and placed in Intensive Care Unit-9 on 12/01/20 at 0005. Patient/family oriented to hospital policies and general routines including ID bracelet, bed and alarms, visiting hours, pain management, procedures, bathroom and other care routines, personal items, smoking policy, room service/diet, and visiting hours. Information on how to activate the Rapid Response Team has been discussed. Patient/Family are encouraged to report perceived risks to care and to ask questions if they do not understand what they are told or what they should do. Pt in police custody.
--- NOTE | 2020-12-01 01:30 | PC.NURSE ---
Pt was able to move self over to bed from stretcher but refuses to answer questions, sleeping intermittently and randomly attempting to sit up and screaming. Responds to sternal rub and shaking by pulling away. Currently handcuffed to the bed due to police custody.
--- NOTE | 2020-12-01 01:48 | PC.NURSE ---
Patient unable to answer questions for suicide screening. Yes answered in chart due to witnessed intentional overdose.
--- NOTE | 2020-12-01 01:51 | ECG_ITS ---
Measurements Intervals [place] Rate: 77 P: 65 ND: 163 QRS: 57 QRSD: 69 T: 60 QT: 362 QTc: 412 Interpretive Statements SINUS RHYTHM NORMAL ECG Electronically Signed On 12-01-2020 7:33:24 CDT by Jose Valiente D.O.
--- NOTE | 2020-12-01 04:43 | PC.NURSE ---
Spoke with [place] from poison control, updated to current patient condition. [place]na states poison control will call back later in morning.
[2020-12-01 06:11] LABS: Basophils Percent Auto 0.3 % (0.2-1.2); Eosinophils Absolute Auto 0.1 K/mm3 (0-0.3); Eosinophils Percent Auto 0.7 % (0-4.4); Hematocrit 40.8 % (42.0-52.0); Hemoglobin 13.3 g/dL (14.0-18.0); Immature Granulocyte Absolute 0.01 K/mm3 (0.00-0.031); Immature Granulocyte Percent A 0.1 % (0-0.5); Lymphocytes Absolute Auto 1.38 K/mm3 (0.9-3.2); Lymphocytes Percent Auto 20.4 % (18.3-44.2); Mean Corpuscular HGB Conc 32.6 g/dl (32-36); Mean Corpuscular Hemoglobin 31.1 pg (26-34); Mean Corpuscular Volume 95.6 fl (80-100); Mean Platelet Volume 9.5 fl (7.4-10.4); Monocytes Absolute Auto 0.5 K/mm3 (0.1-0.6); Monocytes Percent Auto 6.8 % (2.6-8.5); Neutrophils Absolute Auto 4.8 K/mm3 (1.3-6.7); Neutrophils Percent Auto 71.7 % (45.5-73.1); Platelet Count Result 190 k/mm3 (150-375); Red Blood Count 4.27 M/mm3 (4.6-6.20); Red Cell Distribution Width 14.2 % (11.5-14.5); White Blood Count 6.8 K/mm3 (4.5-10.0)
[2020-12-01 06:26] LABS: Potassium 3.8 mmol/L (3.4-5.0)
[2020-12-01 06:29] LABS: Anion Gap 5 mmol/L (8-16); Blood Urea Nitrogen 14 mg/dL (9-20); Carbon Dioxide 23 mmol/L (22-30); Chloride 113 mmol/L (98-107); Estimated CRCL calculation 66 ml/min; Estimated Glomerular Filt Rate > 60; Glucose 81 mg/dL (75-110); Sodium 141 mmol/L (137-145)
--- NOTE | 2020-12-01 09:19 | WPDCNINT ---
Assessment and Plan Assessment and plan (1) Acute encephalopathy: Code(s): G93.40 - Encephalopathy, unspecified Status: Acute Assessment and Plan: Likely as a result of drug overdose. It is unclear how much and what exactly did he take. Continue supportive care. He is on one-to-one observation as well as police chief deputy at the bedside. CT head has been ordered but has not been done so far because he will not lie still for the CT scan because of his mental status change. (2) Drug overdose: Qualifiers: Encounter type: initial encounter Injury intent: intentional self-harm Qualified Code(s): T50.902A - Poisoning by unspecified drugs, medicaments and biological substances, intentional self-harm, initial encounter Code(s): T50.901A - Poisoning by unspecified drugs, medicaments and biological substances, accidental (unintentional), initial encounter Status: Acute Assessment and Plan: It is unclear how much and what exactly did her take but he reported that he took 30 tablets of Seroquel and 30 tablets of clonazepam. Half life of Seroquel is 6 hour while half-life of clonazepam is 17-60 hours. He is confused but not sleepy and can protect his airway. His hemodynamics are stable. Continue end-tidal CO2 monitoring. Continue supportive care. Continue IV fluid. He will remain NPO for now. Diphenhydramine/benztropin will be used if there is any evidence of extrapyramidal signs. Currently he does not have any. Poison control has been called and updated about his clinical condition. (3) Suicide attempt by multiple drug overdose: Qualifiers: Encounter type: initial encounter Qualified Code(s): T50.912A - Poisoning by multiple unspecified drugs, medicaments and biological substances, intentional self-harm, initial encounter Code(s): T50.912A - Poisoning by multiple unspecified drugs, medicaments and biological substances, intentional self-harm, initial encounter Status: Acute Assessment and Plan: Currently on one-to-one observation with police chief deputy at his bedside. Crisis team will evaluate him once his mental status improved. (4) History of pancreatic cancer: Code(s): Z85.07 - Personal history of malignant neoplasm of pancreas Status: Chronic Assessment and Plan: Information is not available for his status of pancreatic cancer. He does have a Port-A-Cath inserted. Will get more information when he is more awake. (5) Polysubstance abuse: Code(s): F19.10 - Other psychoactive substance abuse, uncomplicated Status: Acute Assessment and Plan: He will be consult about quitting drug abuse when she is more awake. Additional Plan DVT prophylaxis with subcu Lovenox GI prophylaxis not indicated Full code Keep him NPO for now until his mental status improved. He can be downgraded to IMU status later today if he remains stable from respiratory and hemodynamic perspective. Critical care time spent 32 minutes Due to a high probability of clinically significant, life threatening deterioration, the patient required my highest level of preparedness to intervene emergently and I personally spent this critical care time directly and personally managing the patient. This critical care time included obtaining a history; examining the patient; pulse oximetry; ordering and review of studies; arranging urgent treatment with development of a management plan; evaluation of patient's response to treatment; frequent reassessment; and discussions with other providers. It was exclusive of separately billable procedures and treating other patients and teaching time. Please see Assessment and Plan section and the rest of the note for further information on patient assessment and treatment. Pipe Installer Consult Note Consult date: 12/01/20 Time Seen: 10:01 HPI: Nikolai Thompson is a 45 year old male with past medical h
[2020-12-01] MEDS: ENOXAPARIN 40 MG/0.4 ML SYRINGE SUB-Q (10:07)
--- NOTE | 2020-12-01 12:06 | PC.NURSE ---
pt released by poison control at this time, Dr. Mccurdy notified
--- NOTE | 2020-12-01 12:46 | PM.DS ---
DS: Admitting Diagnosis Admitting Diagnosis Admitting Diagnosis: (1) Acute encephalopathy: (2) Drug overdose: (3) Suicide attempt by multiple drug overdose: (4) History of pancreatic cancer: (5) Cocaine abuse: (6) Amphetamine abuse: DS: Discharge Diagnosis Discharge Diagnosis (1) Drug overdose: Qualifiers: Encounter type: initial encounter Injury intent: intentional self-harm Qualified Code(s): T50.902A - Poisoning by unspecified drugs, medicaments and biological substances, intentional self-harm, initial encounter Code(s): T50.901A - Poisoning by unspecified drugs, medicaments and biological substances, accidental (unintentional), initial encounter Status: Acute Assessment and Plan: patient has been clear by poison Control will be discharged to correctional facility (2) Polysubstance abuse: Code(s): F19.10 - Other psychoactive substance abuse, uncomplicated Status: Acute Assessment and Plan: patient patient currently living in correctional facility (3) Amphetamine abuse: Code(s): F15.10 - Other stimulant abuse, uncomplicated Status: Acute Assessment and Plan: patient currently living in correctional facility should be away from reach (4) Cocaine abuse: Code(s): F14.10 - Cocaine abuse, uncomplicated Status: Acute Assessment and Plan: patient currently living in correctional facility should be away from reach (5) Acute encephalopathy: Code(s): G93.40 - Encephalopathy, unspecified Status: Acute Assessment and Plan: resolved (6) Suicide attempt by multiple drug overdose: Qualifiers: Encounter type: initial encounter Qualified Code(s): T50.912A - Poisoning by multiple unspecified drugs, medicaments and biological substances, intentional self-harm, initial encounter Code(s): T50.912A - Poisoning by multiple unspecified drugs, medicaments and biological substances, intentional self-harm, initial encounter Status: Acute Assessment and Plan: will follow-up in the outpatient setting through correctional system (7) History of pancreatic cancer: Code(s): Z85.07 - Personal history of malignant neoplasm of pancreas Status: Chronic Assessment and Plan: follow-up as needed DS: Summary Hospital Course Reason for hospitalization: drug overdose Hospital Course: this is a 45-year-old male who is currently living in a correctional facility he was brought to the emergency room after he apparently took a handful of Seroquel and clonazepam. patient was admitted to intensive care unit for close monitoring. there were no events overnight. patient was cleared by poison Control decision has been made to discharge patient back to correctional facility. consults obtained: No concerns procedures done: No procedures Status at Discharge Cognitive/behavioral status at discharge: AAOX3 Functional status at discharge: independent ambulation Overall status at discharge: patient is not back to baseline Time Spent with Patient Time attestation: Total time spent providing and/or coordinating discharge services: Time spent: Greater than 30 minutes Exam Narrative: Exam Narrative: laying in bed Const: General: comfortable, no acute distress, well developed, alert and awake Nutritional Appearance: average body habitus Orientation/consciousness: patient oriented x3 HENMT: Head: normal to inspection, normocephalic and atraumatic Ears: hearing grossly normal bilaterally Face and sinus: normal facial exam Eyes: General: appearance normal, both eyes and all related structures Pupils: Equal, round and reactive pupils present EOM: EOMs intact bilaterally Neck: Neck: full ROM, no lymphadenopathy and no JVD Thyroid: thyroid normal Lymphatic: no lymphadenopathy noted Resp: Effort & Inspection: normal respiratory effort and able
--- NOTE | 2020-12-01 13:24 | PC.NURSE ---
After pt's port cath heparinized and needle dc'd, pt walked to bathroom in cuffs with police, then back to bed, helped dress in scrubs, no clothes to be found, discharge instructions given and pt taken out with the [facility]
== END 2020-12-01 13:17 | DRG 812 ==
LOC: ANHED 22:53 → ANHICU 12-01 02:00
PROVIDERS: Admitting Provider Family Medicine; Emergency Provider Emergency Medicine; Visit Provider Internal Medicine
DX: T50.912A Poisoning by multiple unspecified drugs, medicaments and biological substances, intentional self-harm, initial encounter (principal); G93.40 Encephalopathy, unspecified; F14.10 Cocaine abuse, uncomplicated; F15.10 Other stimulant abuse, uncomplicated; F19.10 Other psychoactive substance abuse, uncomplicated; G20 Parkinson's disease; G35 Multiple sclerosis; F17.200 Nicotine dependence, unspecified, uncomplicated; F41.9 Anxiety disorder, unspecified; F32.9 Major depressive disorder, single episode, unspecified; G40.909 Epilepsy, unspecified, not intractable, without status epilepticus; Z85.07 Personal history of malignant neoplasm of pancreas; Z95.828 Presence of other vascular implants and grafts
CPT/HCPCS: 36415; 36600; 51701; 71045; 74018; 80048; 80053; 80307; 81001; 82550; 82805; 83735; 84100; 85025; 85610; 85730; 87040; 87077; 87086; 87186; 93005; 96360; 99285; J1642; J1650; J7030